=== PATIENT | male | born 1955 | race Two or more races ===

== ENCOUNTER 2019-11-28 11:49 | Inpatient (IN) | payer MEDICARE, OTHER ==
[~2019-11-28] VITALS: Ht 172.7 cm; Wt 95.0 kg
[2019-11-28 13:20] LABS: Basophils # (auto) 0 10 ^3/uL (0-0.2); Basophils % (auto) 0.3 % (0.0-2.0); Eosinophils # (auto) 0 10 ^3/uL (0-0.8); Eosinophils % (auto) 0.7 % (0.0-7.0); Hematocrit 38.4 % (41.0-53.0); Hemoglobin 13.2 g/dL (13.5-17.5); Lymphocytes # (auto) 0.7 10 ^3/uL (0.4-5.4); Lymphocytes % (auto) 12.2 % (10.0-50.0); Mean Corpuscular Hemoglobin 30.9 pg (28.0-32.0); Mean Corpuscular Hgb Conc. 34.5 g/dL (32.0-36.0); Mean Corpuscular Volume 89.8 fL (80.0-100.0); Monocytes # (auto) 0.3 10 ^3/uL (0-1.3); Monocytes % (auto) 5.9 % (0.0-12.0); Neutrophils # (auto) 4.6 10 ^3/uL (1.6-8.6); Neutrophils % (auto) 80.9 % (37.0-80.0); Nucleated Red Blood Cells % 0.1 %; Platelet Count (auto) 127 10^3/uL (140-450); Red Blood Cells 4.28 10^6/uL (4.5-5.90); Red Cell Distribution Width 13.5 % (11.8-14.3); White Blood Cell 5.7 10^3/uL (4.4-10.8)
[2019-11-28] MEDS ORDERED: HYDROcodone-ACET 5/325MG TAB PO ONE (13:30)
[2019-11-28 13:32] LABS: Albumin 2.3 g/dL (3.4-5.0); Calcium 8.5 mg/dL (8.5-10.1); Potassium 3.6 mmol/L (3.5-5.1)
[2019-11-28 13:33] LABS: BUN/Creatinine Ratio 16.2
[2019-11-28 13:37] LABS: Bilirubin, Total 1.2 mg/dL (0.2-1.0); Total Protein 7.4 g/dL (6.4-8.2)
[2019-11-28 13:52] LABS: INR 1.2 (0.9-1.15); Partial Thromboplastin Time 30.7 sec (23.0-31.2)
[2019-11-28] MEDS ORDERED: CLINDAMYCIN 600MG IV 50 ML IV ONE (16:00)
[2019-11-28] MEDS ORDERED: ONDANSETRON HCL 4 MG/2 ML VIAL IV PRN (19:00)
[2019-11-28] MEDS ORDERED: MORPHINE SULF INJ 2 MG/ML SYRINGE 1ML IV PRN (19:00)
[2019-11-28] MEDS ORDERED: NITROGLYCERIN 0.4 MG SL TAB SL PRN (19:00)
[2019-11-28] MEDS ORDERED: ACETAMINOPHEN 325 MG TAB PO PRN (19:00)
[2019-11-28] MEDS ORDERED: LORazepam 0.5 MG TAB PO PRN (19:00)
[2019-11-28] MEDS ORDERED: DOCUSATE SOD 100 MG CAP PO PRN (19:00)
[2019-11-28] MEDS: MORPHINE SULF INJ 2 MG/ML SYRINGE 1ML IV PRN (19:51)
[2019-11-28] MEDS ORDERED: ENALAPRILAT 1.25 MG/ML-1ML VIAL IV PRN (20:00)
--- NOTE | 2019-11-28 20:30 | NUR ---
MS admit from ER GURINDER,DAVIDA admitted to tele/MS after SBAR received from Mary AMIN. Patient oriented to César herrera RN, central unit, 206 room, A bed, and unit policies regarding patient care and visiting hours. Patient weighed by bedscale and encouraged to call if they need something. All questions and concerns addressed, patient verbalized understanding.
--- NOTE | 2019-11-28 21:30 | NUR ---
All wounds pictures taken. Left ear open lesion Left inner forearm open lesion Left outer forearm multiple open lesions with scabs Left hand/index finger multiple open lesion with scab Left posterior calf open lesion Left lateral lower leg open lesion Left anterior lower leg multiple open lesions Right thumb open lesion Right hand open lesions Right forearm multiple open lesion Right anterior lower leg multiple open lesions
[2019-11-28 22:00] VITALS: BP 128/66
[2019-11-28] MEDS ORDERED: TRAZ50TA2 PO (22:03)
[2019-11-28] MEDS ORDERED: HYDR-3682 PO (22:03)
[2019-11-28] MEDS ORDERED: DIPH1TAB30 PO (22:03)
[2019-11-28] MEDS ORDERED: DICL1GEL50 TD (22:03)
[2019-11-28] MEDS ORDERED: GABA300C10 PO (22:03)
[2019-11-28] MEDS ORDERED: FLUO-125 PO (22:03)
[2019-11-28] MEDS ORDERED: OMEP-434 PO (22:03)
[2019-11-28] MEDS ORDERED: ALBU108A5 IN (22:03)
[2019-11-28] MEDS ORDERED: PRAZ1CAP48 PO (22:03)
[2019-11-28] MEDS ORDERED: AMOX-277 PO (22:03)
[2019-11-28] MEDS ORDERED: PROP10TA57 PO (22:03)
[2019-11-28 22:05] VITALS: BP 128/66
[2019-11-28] MEDS: CLINDAMYCIN 600MG IV 50 ML IV SCH (23:07)
[2019-11-28] MEDS: PROPRANOLOL HCL 20 MG TAB PO SCH (23:08)
--- NOTE | 2019-11-29 02:24 | NUR ---
Covid swab test walked collected and walked down to lab by Arely AMIN resource. Addendum: 11/29/19 at 0226 by César Haro RN per protocol covid swab performed due to patient being homeless.
[2019-11-29 05:00] VITALS: BP 135/83
[2019-11-29 05:50] LABS: Albumin 2.1 g/dL (3.4-5.0); Calcium 7.8 mg/dL (8.5-10.1)
[2019-11-29 05:54] LABS: BUN/Creatinine Ratio 21.7; Bilirubin, Total 0.7 mg/dL (0.2-1.0); Total Protein 6.8 g/dL (6.4-8.2)
[2019-11-29] MEDS: CLINDAMYCIN 600MG IV 50 ML IV SCH ×4 (05:56→23:20)
[2019-11-29 06:13] LABS: INR 1.25 (0.9-1.15)
[2019-11-29 06:22] LABS: Basophils # (auto) 0 10 ^3/uL (0-0.2); Basophils % (auto) 0.5 % (0.0-2.0); Eosinophils # (auto) 0.1 10 ^3/uL (0-0.8); Eosinophils % (auto) 1.2 % (0.0-7.0); Hematocrit 37.1 % (41.0-53.0); Hemoglobin 12.7 g/dL (13.5-17.5); Lymphocytes # (auto) 0.8 10 ^3/uL (0.4-5.4); Lymphocytes % (auto) 12.6 % (10.0-50.0); Mean Corpuscular Hemoglobin 30.8 pg (28.0-32.0); Mean Corpuscular Hgb Conc. 34.4 g/dL (32.0-36.0); Mean Corpuscular Volume 89.6 fL (80.0-100.0); Monocytes # (auto) 0.5 10 ^3/uL (0-1.3); Monocytes % (auto) 7.7 % (0.0-12.0); Neutrophils # (auto) 5.1 10 ^3/uL (1.6-8.6); Nucleated Red Blood Cells % 0.1 %; Platelet Count (auto) 134 10^3/uL (140-450); Red Blood Cells 4.14 10^6/uL (4.5-5.90); Red Cell Distribution Width 13.6 % (11.8-14.3); White Blood Cell 6.5 10^3/uL (4.4-10.8)
[2019-11-29 09:00] VITALS: BP 131/77
[2019-11-29] MEDS ORDERED: HEPARIN SODIUM (PORCINE) 5000 UNITS/ML 1ML VIAL SC SCH (09:00)
[2019-11-29] MEDS ORDERED: HEPARIN SODIUM (PORCINE) 5000 UNITS/ML 1ML VIAL ONE (09:35)
[2019-11-29] MEDS: HEPARIN SODIUM (PORCINE) 5000 UNITS/ML 1ML VIAL SC SCH ×2 (09:51→21:45)
[2019-11-29] MEDS: PROPRANOLOL HCL 20 MG TAB PO SCH ×2 (09:51→21:47)
[2019-11-29 10:05] LABS: Urine WBC None Seen /hpf (0 - 3)
[2019-11-29 10:15] LABS: Urine Amorphous Crystal FEW /hpf (None Seen); Urine Bacteria NONE SEEN /hpf (None Seen); Urine Blood Negative /uL (Negative); Urine Specific Gravity 1.017 (1.001-1.035)
[2019-11-29 10:30] LABS: Alcohol, Urine < 3.0 mg/dL (0-10); Amphetamine Screen, Urine NEGATIVE (NEGATIVE); Barbiturate Scree,Urine NEGATIVE (NEGATIVE); Benzodiazephine Screen, Urine NEGATIVE (NEGATIVE); Cannabinoid Screen, Urine NEGATIVE (NEGATIVE); Cocaine Screen, Urine NEGATIVE (NEGATIVE); Opiate Scree,Urine NEGATIVE (NEGATIVE); Phencyclidine Screen, Urine NEGATIVE (NEGATIVE)
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
[2019-11-29 12:47] VITALS: BP 112/74
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
[2019-11-29 17:00] VITALS: BP 117/74
--- NOTE | 2019-11-29 19:25 | NUR ---
RECEIVED PATIENT FROM DAY SHIFT RN. PATIENT RESTING IN BED. NO S/S OF DISTRESS NOTED. DENIED PAIN FOR NOW. DRESSING ON BL ARMS AND HANDS, LOWER LEGS C/D/I. POC INSTRUCTED AND ENCOURAGED PATIENT TO CALL FOR MAT REPAIRER IF NEEDED. BED IN LOWEST LOCKED POSITION WITH SIDE RAILS UP X 2. CALL KAMARA WITHIN REACH. ALARM ON. CONTINUE TO MONITOR FOR CHANGES Q1H AND PRN.
--- NOTE | 2019-11-29 21:35 | NUR ---
BED ALARM WENT OFF, PATIENT GOT UP FOR URINAL. NO S/S OF DISTRESS NOTED. CONTINUE TO MONITOR.
[2019-11-29] MEDS: BACITRACIN TOP OINT 1 UD PKG TOP SCH (21:48)
[2019-11-29 22:00] VITALS: BP 102/63
--- NOTE | 2019-11-30 00:03 | NUR ---
ASSISTED PATIENT FOR URINAL, 300 ML CLEAR AND YELLOW URINE EMPTIED. PATIENT TOLERATED WELL. CONTINUE TO MONITOR.
--- NOTE | 2019-11-30 03:47 | NUR ---
ASSISTED PATIENT FOR URINAL, 400 ML CLEAR AND YELLOW URINE EMPTIED. PATIENT TOLERATED WELL. CONTINUE TO MONITOR.
[2019-11-30] MEDS: CLINDAMYCIN 600MG IV 50 ML IV SCH ×4 (04:36→23:20)
[2019-11-30 05:00] VITALS: BP 121/68
[2019-11-30 09:00] VITALS: BP 133/85
[2019-11-30] MEDS: HEPARIN SODIUM (PORCINE) 5000 UNITS/ML 1ML VIAL SC SCH ×2 (09:46→21:31)
[2019-11-30] MEDS: PROPRANOLOL HCL 20 MG TAB PO SCH ×2 (09:46→21:29)
[2019-11-30] MEDS: BACITRACIN TOP OINT 1 UD PKG TOP SCH ×2 (09:46→21:30)
--- NOTE | 2019-11-30 12:44 | NUR ---
Nutrition Assessment Notes Please refer to link for full assessment notes. Est Energy needs: 3964-4376 kcals (17-20 kcal/kgBW) Est Protein needs: 70-105 gms/day (1.0-1.5 gm/kgIBW of 70kg) Will continue to monitor and reassess prn. Addendum: 11/30/19 at [address] Amended: Links added.
[2019-11-30] MEDS: Ensure HIGH Protein Chocolate 8oz Bottle PO SCH ×2 (15:34→18:16)
[2019-11-30 17:04] VITALS: BP_SYST 132; BP_SYST 92; BP_DIAS 61; BP_DIAS 72
[2019-11-30] MEDS: HYDROcodone-ACET 5/325MG TAB PO PRN (18:38)
[2019-11-30 18:46] VITALS: BP 100/68
--- NOTE | 2019-11-30 19:21 | NUR ---
RECEIVED PATIENT FROM DAY SHIFT RN. PATIENT RESTING IN BED. NO S/S OF DISTRESS NOTED. DENIED PAIN FOR NOW. DRESSING ON BL ARMS AND HANDS, LOWER LEGS C/D/I. ASSISTED PATIENT TO BATHROOM AND BACK TO BED. PATIENT WALKED WITH STEADY GAIT AND TOLERATED WELL. POC INSTRUCTED AND ENCOURAGED PATIENT TO CALL FOR CORPORATE WEBMASTER IF NEEDED. BED IN LOWEST LOCKED POSITION WITH SIDE RAILS UP X 2. CALL KAMARA WITHIN REACH. ALARM ON. CONTINUE TO MONITOR FOR CHANGES Q1H AND PRN.
[2019-11-30 21:14] VITALS: BP 116/76
--- NOTE | 2019-11-30 22:34 | NUR ---
PATIENT WALKED TO BATHROOM AND BACK TO BED WITH STEADY GAIT. NO S/S OF DISTRESS NOTED. CONTINUE CARE.
[2019-12-01] MEDS: HYDROcodone-ACET 5/325MG TAB PO PRN ×3 (03:00→20:43)
--- NOTE | 2019-12-01 03:00 | NUR ---
MEDICATED PATIENT FOR PAIN @ 08/14 ORDERED. CONTINUE TO MONITOR.
--- NOTE | 2019-12-01 04:00 | NUR ---
REASSESSED PAIN, PATIENT SLEEPING. NO S/S OF PAIN NOTED CONTINUE TO MONITOR.
[2019-12-01] MEDS: CLINDAMYCIN 600MG IV 50 ML IV SCH (04:33)
[2019-12-01 05:07] VITALS: BP 104/70
--- NOTE | 2019-12-01 07:40 | NUR ---
Opening note Assumed care of patient from NOC RN. Patient is AOx4 no s/s of distress or SOB noted. Bed is in lowest locked position, side rails up x2 and call light is within reach. Updated patient on plan of care and patient verbalized understanding. Will continue to monitor.
[2019-12-01 08:00] VITALS: BP 89/57
[2019-12-01] MEDS: Ensure HIGH Protein Chocolate 8oz Bottle PO SCH ×3 (08:00→18:37)
--- NOTE | 2019-12-01 08:05 | NUR ---
Physician rounding Dr. Abbasi at bedside, updated patient on plan of care, patient verbalized understanding. No new orders received. Will continue to monitor.
[2019-12-01] MEDS: PROPRANOLOL HCL 20 MG TAB PO SCH ×2 (10:00→20:43)
[2019-12-01] MEDS: levoFLOXacin 500MG 100 ML IV SCH (11:49)
[2019-12-01] MEDS: BACITRACIN TOP OINT 1 UD PKG TOP SCH ×2 (11:49→20:29)
[2019-12-01] MEDS: HEPARIN SODIUM (PORCINE) 5000 UNITS/ML 1ML VIAL SC SCH ×2 (12:05→20:29)
[2019-12-01 12:53] VITALS: BP 109/73
[2019-12-01 16:58] VITALS: BP 111/71
--- NOTE | 2019-12-01 18:00 | NUR ---
dressing change dressings changed as ordered. Patient tolerated well.
[2019-12-01] MEDS: MORPHINE SULF INJ 2 MG/ML SYRINGE 1ML IV PRN (18:37)
--- NOTE | 2019-12-01 19:20 | NUR ---
End of shift note Endorsed care to NOC RN. No s/s of distress or SOB noted.
[2019-12-01 23:18] VITALS: BP 95/50
[2019-12-02] MEDS: HYDROcodone-ACET 5/325MG TAB PO PRN ×3 (01:10→21:56)
[2019-12-02 05:23] VITALS: BP 94/56
--- NOTE | 2019-12-02 07:45 | NUR ---
Opening note Assumed care of patient from NOC RN Lauren. Patient is AOx4 no s/s of distress or SOB noted. Bed is in lowest locked position, side rails up x2 and call light is within reach. Updated patient on plan of care and patient verbalized understanding. Will continue to monitor.
--- NOTE | 2019-12-02 08:50 | NUR ---
Physician rounding Dr. Abbasi at nurses station, no new orders received. Will continue to monitor q1hr and PRN.
[2019-12-02 09:00] VITALS: BP 106/62
[2019-12-02] MEDS: PROPRANOLOL HCL 20 MG TAB PO SCH ×2 (10:00→22:00)
[2019-12-02] MEDS: levoFLOXacin 500MG 100 ML IV SCH (10:15)
[2019-12-02] MEDS: Ensure HIGH Protein Chocolate 8oz Bottle PO SCH ×3 (10:15→18:00)
[2019-12-02] MEDS: BACITRACIN TOP OINT 1 UD PKG TOP SCH ×2 (10:16→21:57)
[2019-12-02] MEDS: HEPARIN SODIUM (PORCINE) 5000 UNITS/ML 1ML VIAL SC SCH ×2 (10:23→21:50)
[2019-12-02 12:28] VITALS: BP 107/72
[2019-12-02] MEDS: MORPHINE SULF INJ 2 MG/ML SYRINGE 1ML IV PRN (15:51)
[2019-12-02 16:40] VITALS: BP 139/89
--- NOTE | 2019-12-02 19:09 | NUR ---
end of shift note care endorsed to NOC RN. No s/s of distress noted.
[2019-12-02 22:00] VITALS: BP 91/57
--- NOTE | 2019-12-03 02:51 | NUR ---
WOUND CARE DONE, DRESSING CHANGED ON BLE AND BUE.
[2019-12-03 05:05] VITALS: BP 103/56
[2019-12-03] MEDS: Ensure HIGH Protein Chocolate 8oz Bottle PO SCH ×2 (09:03→16:07)
[2019-12-03] MEDS: levoFLOXacin 500MG 100 ML IV SCH (09:04)
[2019-12-03 09:07] VITALS: BP 108/62
[2019-12-03] MEDS: HEPARIN SODIUM (PORCINE) 5000 UNITS/ML 1ML VIAL SC SCH (09:15)
[2019-12-03] MEDS: BACITRACIN TOP OINT 1 UD PKG TOP SCH (09:16)
[2019-12-03] MEDS: PROPRANOLOL HCL 20 MG TAB PO SCH (09:16)
[2019-12-03] MEDS: HYDROcodone-ACET 5/325MG TAB PO PRN (09:20)
--- NOTE | 2019-12-03 11:38 | NUR ---
Nutrition Followup Notes Pt wt is 95.0 kg Pt was sleeping when rounded this morning. Pt is with a Regular diet, appetite is fair aeb ave 50% PO intake per RN doc. Pt with no s/s of distress per RN doc. Est Energy needs: 1700-2841 kcals (17-20 kcal/kgBW) Est Protein needs: 70-105 gms/day (1.0-1.5 gm/kgIBW of 70kg) Will continue to monitor and reassess prn. LABS: Aa 7.8 L, Alb 2.1 L GI: Pt had 1 BM on 12/02 per RN doc. BS: 20 low risk. Refer to wound assessment report for full details. PES: Obesity r/t energy intake in excess of energy needs aeb 129% IBW and BMI of 31.1 kg/m2 Comments Will continue to monitor PO status, skin status, pertinent labs and weight trends. Will f/u in 3-5 days. 1) Continue to carefully monitor pt PO intake to meet at least 75% of meals 2) If albumin continues trending down consider Prostat 1 pkt BID 4) Refer pt to a RD for nutrition/wt management education upon D/C 5) Continue current plan of care
[2019-12-03 14:04] VITALS: BP 77/52
[2019-12-03 14:05] VITALS: BP 82/54
--- NOTE | 2019-12-03 14:52 | NUR ---
D/C Planning Per SS consult for SNF placement for IV abx for 10 days. Patient had no SNF preference. Faxed to [facility], [facility] and [facility]. Per Odalys with [facility] [phone] patient has been accepted to room 406 bed. [facility] transportation will be transporting patient to facility once mid line is placed.
--- NOTE | 2019-12-03 15:15 | NUR ---
CALLED [facility] ABOUT IV ACCESS SPOKE TO LEONID RN GAVE REPORT AND NOTIFIED HER THAT PATIENT WAS REFUSING MIDLINE AND IF IT WAS OKAY IF HE WENT WITH IV ACCESS. LEONID GAVE OKAY FOR IV ACCESS.
--- NOTE | 2019-12-03 15:15 | NUR ---
MIDLINE UNSUCCESSFUL ATTEMPT TO PLACE MIDLINE, PT UNCOOPERATIVE AND MOVING AROUND. UNABLE TO STAY STILL. PT REFUSED FOR AN OTHER ATTEMPT FOR MIDLINE. SPOKE WITH PRIMARY RN. 20G TO RIGHT FOREARM IN PLACE.
--- NOTE | 2019-12-03 15:50 | NUR ---
Transportation was set for 4pm with [facility] transportation.
--- NOTE | 2019-12-03 15:54 | NUR ---
Discharge instructions given as ordered. All questions and concerns addressed. Patient verbalized understanding. Patient left with 20g IV for IV antibiotics pressure dressing applied, gayle catheter removed. Medication reconciliation form completed and copy given to patient. Home medications held in Pharmacy returned to patient. Report given to Jenni at [[facility]]. Patient transported by [[facility]] with all personal belongings. No distress noted at time of departure.
== END 2019-12-03 15:54 | DRG 603 ==
LOC: EDBD 11:49 → ER 11:49 → OVERFLOW 11:50 → CENTRAL 20:18
PROVIDERS: ADMIT Student in an Organized Health Care Education/Training Program; ATTEND Family Medicine
DX: L03.116 Cellulitis of left lower limb (principal); E87.1 Hypo-osmolality and hyponatremia; E44.1 Mild protein-calorie malnutrition; L03.115 Cellulitis of right lower limb; D69.6 Thrombocytopenia, unspecified; B19.20 Unspecified viral hepatitis C without hepatic coma; I10 Essential (primary) hypertension; F17.210 Nicotine dependence, cigarettes, uncomplicated; F43.10 Post-traumatic stress disorder, unspecified; F41.9 Anxiety disorder, unspecified; F19.10 Other psychoactive substance abuse, uncomplicated; B18.2 Chronic viral hepatitis C; E11.9 Type 2 diabetes mellitus without complications; Z20.828 Contact with and (suspected) exposure to other viral communicable diseases; F32.9 Major depressive disorder, single episode, unspecified; A49.01 Methicillin susceptible Staphylococcus aureus infection, unspecified site; Z59.0 Homelessness; Z91.19 Patient's noncompliance with other medical treatment and regimen; K74.60 Unspecified cirrhosis of liver
CPT/HCPCS: 36415; 71045; 80053; 80307; 81001; 83605; 83735; 83880; 85025; 85610; 85652; 85730; 86141; 87040; 87077; 87081; 87186; 87205; 93005; 93923; 93970; 96365; 96366; 97110; 97163; G0378; J1956; J3490

== ENCOUNTER 2020-10-30 13:33 | Emergency (ER) | payer MEDICARE, OTHER ==
[~2020-10-30] VITALS: Ht 175.3 cm; Wt 81.6 kg
[~2020-10-30 13:33] MED LIST: ALBU108A5 IN; AMOX-277 PO; DICL1GEL50 TD; DIPH1TAB30 PO; FLUO-125 PO; GABA300C10 PO; HYDR-3682 PO; OMEP-434 PO; PRAZ1CAP48 PO; PROP10TA57 PO; TRAZ50TA2 PO
[2020-10-30] MEDS ORDERED: KETOROLAC TROMETH 30 MG/ML 1ML VIAL IV ONE (16:15)
[2020-10-30 16:20] VITALS: BP 110/75
== END 2020-10-30 16:25 | disposition home or self-care (01) ==
LOC: EDBD 13:33 → ER 13:33 → EDUNIT# 13:33 → ER 16:25
DX: N43.3 Hydrocele, unspecified (principal); K76.9 Liver disease, unspecified; F17.210 Nicotine dependence, cigarettes, uncomplicated; F12.10 Cannabis abuse, uncomplicated; F41.9 Anxiety disorder, unspecified; Z59.0 Homelessness
CPT/HCPCS: 76870; 96374; 99284; J1885